=== PATIENT | female | born 1965 | race Caucasian/White ===

== ENCOUNTER 2024-10-20 18:27 | Emergency (ER) | payer OTHER, SELFPAY ==
--- OUTSIDE RECORDS SUMMARY | 2024-10-20 18:34 | XMS_ITS | Clinical Summary ---
Author Organization [facility] Address [address] [place] [address] Care Team Providers Care Bid Analyst Name Role Phone Unavailable Primary Care Provider Unavailabl e Source Comments [facility],non-owned Affiliates and Associated Physician Practices is amultiple site organization consisting of ambulatory clinics and hospital sitesin [place], [place], [place] and [place]. This disclosure is being madepursuant to the Care Everywhere program and may not contain all information available regarding this patient. Last updated 18.[facility] Allergies Active Allergy Reactions Criticality Noted Date Comments Codeine Dizziness 12/05/2021 Medications * Be aware that medications may not be up to date on this document. Alwaysverify current medications with the patient. Medication Sig Dispensed Refills Start Date End Date Status HYDROcodone-acetaminop hen (NORCO) 5-325 MG tablet Take 1 (one) tablet by mouth every 6 hours as needed for Pain 6 tablet 12/05/2021 Active Social History Tobacco Use Types Packs/Day Years Used Date Smoking Tobacco: Former Cigarettes 1 1.5 Smokeless Tobacco: Never Alcohol Use Standard Drinks/Week Comments Yes 0 (1 standard drink = 0.6 oz pur e alcohol) once per month max Sex and Gender Information Value Date Recorded Sex Assigned at Not on file Gender Identity Not on file Sexual Orientation Not on file Last Filed Vital Signs Vital Sign Reading Time Taken Comments Blood Pressure 112/73 12/05/2021 6:00 PM CDT Pulse - - Temperature 36.8 C (98.2 F) 12/05/2021 4:06 PM CDT Respiratory Rate 16 12/05/2021 4:05 PM CDT Oxygen Saturation 100% 12/05/2021 6:00 PM CDT Inhaled Oxygen Concentration - - Weight 86.2 kg (190 lb) 12/05/2021 4:06 PM CDT Height 165.1 cm (5' 5 ) 12/05/2021 4:06 PM CDT Body Mass Index 31.62 12/05/2021 4:06 PM CDT Plan of Treatment Health Maintenance Due Date Last Done Comments COLOGUARD (AGES 45-75) - COL ON CA SCREENING 1967 COLON MONITORING 1967 COLONOSCOPY - COLON CA SCREENING 1967 CT COLONOGRAPHY - COLON CA SCREENING 1967 Colorectal Cancer Screening 1967 FIT - COLON CA SCREENING 1967 FLEX SIG - COLON CA SCREENING 1967 LIPID TESTING 1967 MAMMOGRAM 1967 PAP SMEAR 1967 HIV SCREENING 1982 HEPATITIS C SCREENING 09/25/1985 DTAP/TDAP/TD VACCINES (1 - Tdap) 1986 HEPATITIS B VACCINE (1 of 3 - 19+ 3-dose series) 1986 PNEUMOCOCCAL VACCINE 50+ (1 of 1 - PCV) 2017 ZOSTER VACCINE (1 of 2) 2017 COVID-19 VACCINE (1 - 2023-2 5 season) 2024 INFLUENZA VACCINE (#1) 2024 DEPRESSION SCREENING 08/05/2024 HIB VACCINE Aged Out No longer eligi ble based on patient's age to complete this topic HPV VACCINE Aged Out No longer eligi ble based on patient's age to complete this topic MENINGOCOCCAL (Group B) VACC INE SHARED DECISION-MAKING Aged Out No longer eligibl e based on patient's age to complete this topic MENINGOCOCCAL GROUPS A/C/Y/W VACCINE Aged Out No longer eligible b ased on patient's age to complete this topic PNEUMOCOCCAL VACCINE Aged Out No long er eligible based on patient's age to complete this topic
--- OUTSIDE RECORDS SUMMARY | 2024-10-20 18:34 | XMS_ITS | Data Portability ---
Author Organization [facility] [place] Address [address] [place] [address] Assessment No assessment recorded. Plan of Treatment Reminders Order Date Submit Date Provider Last Modified By Organization Details Last Modified Time Details Appointments None recorded. Lab lipid panel, serum 2022 023 [facility], [address], [place], [address], 3 20:08:50 CMP, serum or plasma 2022 023 [facility], [address], [address], [place], [address], 3 20:08:50 ccp (cyclic citrullin ated peptide) iga+igg, serum 2022 023 [facility], [address], [address], [place], [address], 3 06:15:21 rf (rheumato id factor), serum 2022 023 [facility], [address], [address], [place], [address], 3 06:15:22 Hepatitis C IgG Ab, qual, serum 2022 023 [facility], [address], [address], [place], [address], 3 06:15:20 HbA1c (hemoglob in A1c), blood 2022 023 [facility], [address], [address], [place], [address], 06:15:22 Referral None recorded. Procedures None recorded. Surgeries None recorded. Imaging electroca rdiogram 2022 023 [facility] In-Office Order, Internal Use Only DO Not Attach Compendium DO Not Attach Compendium, Do Not Delete/merge, [id number] 12:55:24 Medication Orders None recorded. Patient TargetsNo targets recorded. Patient Instructions Encounter Date Encounter Id Patient Instructions Last Modified By Organization Details Last Modified Time 01/22/2023 [id number] A healthy lifestyle: care instructions [email or web address] Not available 01/22/2023 12:11:47 Reason for Referral None Reported. Results Created Date Observation Date Name Description Value Unit Range Abnormal Flag Note LastModifiedBy Organization Detail LastModifiedTime 01/23/2001/22/2023 LIPID PANEL cholesterol, total 233.8 mg/dL 140.0- 200.0 above high normal Not Available [facility] Department [address] [place], [address], 01/22/2023 20:08:50 01/23/2001/22/2023 LIPID PANEL triglyceride s 81 mg/dL <=150 Not Available [facility] Department [address] [place], [address], 01/22/2023 20:08:50 01/23/20 23 01/22/2023 LIPID PANEL HDL cholesterol 104.3 mg/dL 40.0-1 00.0 above high normal Not Available [facility] Department [address] [place], [address], 01/22/2023 20:08:50 01/23/20 23 01/22/2023 LIPID PANEL VLDL cholesterol enoc 16.20 mg/dL 5.00-4 0.00 Not Available [facility] Department [address] [place], [address], 01/22/2023 20:08:50 01/23/20 23 01/22/2023 LIPID PANEL LDL chol calc ([facility]) 115.8 mg/dL 0.0-99 .0 above high normal Not Available [facility] Department [address] [place], [address], 01/22/2023 20:08:50 01/23/20 23 01/22/2023 COMP. METAB OLIC PANEL (14) glucose 98 mg/dL 65-99 ANION GP 19.0 mmol/ L N OSMOL 277.0 mOsM/ L N REFER ENCE RANGE : 275.0 -301. 0 Not Available [facility] Department [address] [place], [address], 01/22/2023 20:08:50 01/23/20 23 01/22/2023 COMP. METAB OLIC PANEL (14) BUN 12 mg/dL 8-26 Not Available [facility] Department [address] [place] [address], [address], 01/22/2023 20:08:50 01/23/20 23 01/22/2023 COMP. METAB OLIC PANEL (14) creatinine 0.89 mg/dL 0.50-1 .40 Not Available [facility] Department [address] [place], [address], 01/22/2023 20:08:50 01/23/20 23 01/22/2023 COMP. METAB OLIC PANEL (14) eGFR 77 mL/mi n/1.7 3 >=60 Not Available [facility] Department [address] [place], [address], 01/22/2023 20:08:50 01/23/20 23 01/22/2023 COMP. METAB OLIC PANEL (14) BUN/creatini ne ratio 12.9 Not Available [facility] Department [address] [place], [address], 01/22/2023 20:08:50 01/23/20 23 01/22/2023 COMP. METAB OLIC PANEL (14) sodium 139.0 mmol/ L 136.0- 144.0 Not Available [facility] Department [address] [place], [address], 01/22/2023 20:08:50 01/23/20 23 01/22/2023 COMP. METAB OLIC PANEL (14) potassium 5.4 mmol/ L 3.5-5. 3 above high normal Not Available [facility] Department [address] [place], [address], 01/22/2023 20:08:50 01/23/20 23 01/22/2023 COMP. METAB OLIC PANEL (14) chloride 103 mmol/ l 101-11 1 Not Available [facility] Department [address] [place] [address], [address], 01/22/2023 20:08:50 01/23/20 23 01/22/2023 COMP. METAB OLIC PANEL (14) carbon dioxide, total 23.0 mmol/ L 21.0-3 2.0 Not Available [facility] Department [address] [place] [address], [address], 01/22/2023 20:08:50 01/23/20 23 01/22/2023 COMP. METAB OLIC PANEL (14) calcium 9.5 mg/dL 8.2-10 .0 Not Available [facility] Department [address] [place] [address], [address], 01/22/2023 20:08:50 01/23/20 23 01/22/2023 COMP. METAB OLIC PANEL (14) protein, total 6.9 g/dL 6.7-8. 2 Not Available [facility] Department [address] [place] [address], [address], 01/22/2023 20:08:50 01/23/20 23 01/22/2023 COMP. METAB OLIC PANEL (14) albumin 4.2 g/dL 3.5-5. 5 Not Available [facility] Department [address] [place], [address], 01/22/2023 20:08:50 01/23/20 23 01/22/2023 COMP. METAB OLIC PANEL (14) globulin, total 2.7 g/dL 1.5-4. 5 Not Available [facility] Department [address] [place], [address], 01/22/2023 20:08:50 01/23/20 23 01/22/2023 COMP. METAB OLIC PANEL (14) A/G ratio 1.5 Not Available [facility] Department [address] [place], [address], 01/22/2023 20:08:50 01/23/20 23 01/22/2023 COMP. METAB OLIC PANEL (14) bilirubin, total 0.2 mg/dL 0.0-1. 2 Not Available [facility] Department [address] [place], [address], 01/22/2023 20:08:50 01/23/20 23 01/22/2023 COMP. METAB OLIC PANEL (14) alkaline phosphatase 121.2 IU/L 42.0-1 21.0 above high normal Not Available [facility] Department [address] [place], [address], 01/22/2023 20:08:50 01/23/20 23 01/22/2023 COMP. METAB OLIC PANEL (14) AST (SGOT) 10.5 U/L 10.0-4 2.0 Not Available [facility] Department [address] [place], [address], 01/22/2023 20:08:50 01/23/20 23 01/22/2023 COMP. METAB OLIC PANEL (14) ALT (SGPT) 6.5 U/L 10.0-6 0.0 below low normal Not Available [facility] Department [address] [place], [address], 01/22/2023 20:08:50 01/23/20 23 01/23/2023 HCV ANTIB CARLOS RFX TO QUANT PCR HCV Ab Non Reacti ve nonrea ctive Not Available [facility] ([facility]) [address] [place], [address], 01/26/2023 06:15:20 01/23/20 23 01/25/2023 CCP ANTIB ODIES IGG/I GA ccp antibodies IgG/IgA 6 units 0-19 Negat noelle <20 Weak posit noelle 20 - 39 Moder ate posit noelle 40 - 59 Stron g posit noelle >59 Value s above 250 units are repor liudmila at the reque st of the clien t. Such value s are beyon d the linea rity range of the assay . Not Available [facility] ([facility]) [address] [facility], [place], [address], 01/26/2023 06:15:21 01/23/20 23 01/23/2023 HEMOG LOBIN A1C hemoglobin A1C 5.8 % 4.8-5. 6 above high normal Predi abete s: 5.7 - 6.4 Diabe anival: >6.4 Glyce mary contr ol for adult s with diabe anival: <7.0 Not Available [facility] ([facility]) [address] [place], [address], 01/26/2023 06:15:22 01/23/2001/23/2023 RHEUM ATOID FACTO R (RF) rheumatoid factor (rf) <10.0 IU/mL <14.0 Not Available [facility]) [address] [place], [address], 01/26/2023 06:15:22 01/23/20 23 01/23/2023 INTER PRETA TION: interpretati on: Commen t Not infec liudmila with HCV unles s early or acute infec tion is suspe cted (whic h may be delay ed in an immun ocomp romis ed indiv idual ), or other evide nce exist s to indic ate HCV infec tion. Not Available [facility] ([facility]) [address], [place], [address], 01/26/2023 06:15:20 01/23/20 23 01/22/2023 elect rocar diogr am No observ ation record ed. [facility] In-Office Order Internal Use Only DO Not Attach Compendium DO Not Attach Compendium, Do Not Delete/merge, [id number] 01/22/2023 12:55:36 01/23/20 23 01/22/2023 elect rocar diogr am No observ ation record ed. [facility] In-Office Order Internal Use Only DO Not Attach Compendium DO Not Attach Compendium, Do Not Delete/merge, [id number] 01/22/2023 12:54:55 07/23/20 24 07/22/2024 CT, enter ogram No observ ation record ed. [address], [address], 07/27/2024 08:29:56 Result Notes None recorded. Problems Name Problem SNOMED Code Status Onset Date Resolution Date Notes Provider Name and Address Organization Details Recorded Time Inflammatory bowel disease 45991291 Active 2022 Cristiana Schmidt MD Attn: Accounting ,[address] [place], [address] , [place] - [facility] 3 11:59:23 Irregular heart beat 278391465 Active 2022 Cristiana Schmidt MD Attn: Accounting ,[address] [facility], [place], [address] , [place] - [facility] 3 11:59:36 Multiple joint pain 78326677 Active 2022 Cristiana Schmidt MD Attn: Accounting ,[address] [place], [address] , [place] - [facility] 3 11:59:51 Obesity 839666173 Active 2022 Cristiana Schmidt MD Attn: Accounting ,[address] [facility], [place], [address] , [place] [facility] 3 11:59:55 Chronic depression 355203718 Active 2022 Cristiana Schmidt MD Attn: Accounting ,[address] [facility], [place], [address] , [place] [facility] 3 12:00:02 Gastroesophag eal reflux disease 504636631 Active 2022 Cristiana Schmidt MD Attn: Accounting ,[address] [facility], [place], [address] , [place] [facility] 3 12:00:10 Problem Notes None recorded. Procedures Surgical History Date Name Laterality Status Provider Name and Address Organization Details Recorded Time 08/05/19 10 laparoscopic sleeve gastrectomy completed Danae Burciaga MA [facility] 01/22/2023 10:16:30 06/02/19 96 section completed Danae Burciaga MA [place] [facility] 01/22/2023 10:16:50 08/05/18 76 Removal of tonsils completed Danae Burciaga [place] [facility] 01/22/2023 10:17:12 Total hysterectomy completed Leslie Palacios APN, [employer] Attn: Accounting,[address] [facility], [place], [address], [place] [facility] 02/12/2024 12:16:37 Imaging Results Imaging Date Name Status LastModified by Organization Details LastModified Time 01/22/2023 electrocardiogram completed [facility] In-Offi ce Order Internal Use Only DO Not Attach Compendium DO Not Attach Compendium, Do Not Delete/merge, [id number] 01/22/2023 12:55:36 01/22/2023 electrocardiogram completed [facility]-Off[facility] Order Internal Use Only DO Not Attach Compendium DO Not Attach Compendium, Do Not Delete/merge, [id number] 01/22/2023 12:54:55 07/22/2024 CT, enterogram completed [address] [place], [address], 07/27/2024 08:29:56 Procedure Notes None recorded. Medical Equipment None Reported. Allergies Allergen ID Allergen Name Allergen Category Reaction Reaction Severity Criticality Documentation Date Start Date Code Code System Note Provider Name and Address Organization Details Recorded Time 643856 codeine medicatio n dizziness severe Not available 01/22/2023 2670 RxNorm Not Available Not Available Not Available 907430 erythromy kvng medicatio n vomiting moderate Not available 01/22/2023 4053 RxNorm Not Available Not Available Not Available Medications Name Sig Start Date Stop Date Status Note LastModified by Organization Details LastModified Time venlafaxine ER 75 mg capsule,exten ded release 24 hr TAKE 3 CAPSULES BY MOUTH IN THE MORNING active Not Available Not Available No t Available bupropion HCl XL 300 mg 24 hr tablet, extended release TAKE 1 TABLET BY MOUTH ONCE DAILY active Not Available Not Available No t Available Vitals Date Recorded Respiratory rate Oxygen saturation Oxygen saturation in Arterial blood by Pulse oximetry Body weight Body mass index (BMI) Body height Heart rate Body temperature Systolic blood pressure Diastolic blood pressure Provider Name and Address Organization Details Last Updated DateTime 12 /min 97 % 97 % 79226.0 3 g 35.4 kg/m2 162.56 cm 96 /min 98.1 [degF] 127 mm[Hg] 78 mm[Hg] Danae Burciaga MA [facility] 10:11:30 Social History Question Answer Notes LastModified by Organizat ion Details LastModified Time Tobacco Smoking Status Never Smoker Danae Burciaga MA null, [place] - [facility] 01/22/2023 10:18:07 What Is Your Level Of Alcohol Consumption? Occasional Information not available 01/22/2023 What Is Your Level Of Caffeine Consumption? Heavy Coffee Information not available 01/22/2023 Are There Any Guns Present In Your Home? No Information not available 01/22/2023 What Was The Date Of Your Most Recent Tobacco Screening? 01/22/2023 Information not available 01/22/2023 Do You Have Smoke And Carbon Monoxide Detectors In Your Home? Yes Information not available 01/22/2023 Are You Passively Exposed To Smoke? No Information no t available 01/22/2023 Do You Use Any Illicit Or Recreational Drugs? No Information not available 01/22/2023 Do You Use Sunscreen Routinely? Yes Information not available 01/22/2023 Has Tobacco Cessation Counseling Been Provided? No Information not available 01/22/2023 Do You Or Have You Ever Used Any Other Forms Of Tobacco Or Nicotine? No Information not available 01/22/2023 Sex: Female Functional Status None recorded. Mental Status None recorded. Family History Relationship Description Onset Age of this Age Resolved Age Notes LastModified by Organization Details LastModified Time Mother Hypertensive disorder [email or web address] Not available 01/22 10:14:33 Mother Hypercholest erolemia [facility] Not available 01/22 10:15:08 Father Hypertensive disorder [facility] Not available 01/22 10:14:41 Father Heart disease [facility] Not available 01/22 10:14:51 Father Hypercholest erolemia [facility] Not available 01/22 10:15:08 Medical History Condition Response Coronary Artery Disease N Other N Atrial Fibrillation N High Blood Pressure N Thyroid Problems N Kidney or Bladder Problems N Depression Y COPD N Blood Clots N GI Problems N Skin Problems N Eating Disorder N Anemia N Heart Attack (DC) N Diabetes N Anxiety Disorder N Muscle, Joint, or Bone Problems N Seizures/Epilepsy N Acid Reflux (GERD) N Cancer N Stroke N Allergies N Asthma N ADHD N Substance Abuse N High Cholesterol N Hepatitis N Liver Disease N Schizophrenia N Headaches N Osteoporosis N Heart Failure N Gynecological HistoryNo gynecological history recorded. Obstetrics History GPAL:G 0 P 0 0 0 0 Past Encounters Encounter ID Performer Location Encounter Start Date Encounter Closed Date Diagnosis/Indication Diagnosis SNOMED-CT Code Diagnosis ICD10 Code Diagnosis Note [id number] MD Michael Bill 14 IM 4 [facility] [place] [address] 01/22/2023 09:51:40 02/04/2023 13:17:40 Obesity 821702514 E66.9 Continue on lifestyle measuresCa n discuss more re: diet at next visit, ok to continue exercise Irregular heart beat 361 903789 R00.8 Chest pain 33773694 R07. 9 see irregular heart beat Multiple joint pain 3567 8005 M25.50 Diabetes m ellitus screening 162817214 Z13.1 Hyperlipid emia screening 313332051 Z13.220 Hepatitis C screening 41 7008748 Z11.59 Gastroesop hageal reflux disease 930657972 K21.9 Health Concerns Section Related Observation LastModified by Organization Detai ls LastModified Time None Recorded Concern Status LastModified by Organization Details LastModified Time None Recorded Advance Directives Directive None Recorded Payers Encounter Date Sequence Insurance Name Policy Number Policy Keller Covered Member ID Keller Member ID Guarantor Name 01/22/2023 1 [facility] [id number] Alethea Patel [id number] Alethea Patel Notes Date Note Type Note Provider Name and Address Organization Details Recorded Time 01/22/2023 text/html Here to est care and discuss the following Irregular Heartbeat, Chest painMother has WPW and Alethea has a long hx of feeling skipped beats, sometimes will feel it rarely, most frequently had been 1x/monthNow getting it a few times a week for the last 6 monthsHas also been feeling a very sharp pinpoint sensation in center of chest, just behind sternum, feels deep, occurs 1xweek and also going on about 6 monthsPain will last split second and will sometimes be accompanied by the heart flutterSx can occur in any setting - watching TV, when exercising; nothing seems to bring it on; has exercised with no issueWears heart monitor when exercising, has not been alerted to any issuesDoesn't feel presyncopalHas depression which she reports as well managed but also reports she's been under more stress with recent job expansionA&P: EKG is unremarkable. CMP pending to check electrolytes. If normal will plan for holter. Pain in multiple jointsC/o pain in lots of areas - hands, shoulders, knees, feet, ankles but has really been hurting in handsThey are stiff at times, but pain is more the issue, feels heat, stinging, at times will have red color to jointsL thumb is worst ; handedHas tried ibuprofen but worries because of bad gerd issues and hx of gastric surgeryHasn't tried tylenolHasn't tried any topicalHas OA in both parents; had aunt with rheumatoidHad been tested for RA, neg, but 10 yearsMother had thryoid issues, no other autoimmunePt herself has IBDA&P: Labs pending; if negative consider imaging vs referral to rhuem given her other autoimmune dx. In the meantime try topical voltaren. Fine to keep exercising. ObesityS/p Gastric sleeve and kept much of weight off for years but with covid and menopause gained 80lb; which is about halfSince Feb has lost about 6 lbNo changing diet but has been exercising more regularlyA&P: Not focus of encounter today; reassured her that's a pretty good rate of weight loss, no changes for now Ulcerative colitisFound incidentally on screening cscopeSuffers minimally from pain, constipationMay be more of crohn's, looking into more testingSees GI here on campus, Dr. 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
--- OUTSIDE RECORDS SUMMARY | 2024-10-20 18:35 | XMS_ITS | Clinical Summary ---
Author Organization [facility] Address [address] [place] [address] Care Team Providers Care Aviation Program Manager Name Role Phone Cristiana Schmidt MD Primary Care Provide r Allergies Active Allergy Reactions Criticality Noted Date Comments Codeine Dizziness Low Erythromycin Nausea & Vomiting Low Medications buPROPion XL (WELLBUTRIN XL) 300 mg 24 hr tablet Take 1 tablet (300 mg total) by mouth daily Active venlafaxine XR (EFFEXOR-XR) 75 mg 24 hr capsule Take 1 capsule (75 mg total) by mouth 3 (three) times a day 2 Active docusate sodium (Colace) 100 mg capsuleIndicati ons:constipatio n Take 1 capsule (100 mg total) by mouth 2 (two) times a day for 14 days 28 capsule 5 Active ondansetron (ZOFRAN) 4 mg tablet Take 1 tablet (4 mg total) by mouth every 8 (eight) hours as needed for nausea or vomiting Active ondansetron (ZOFRAN) 4 mg tablet Take 1 tablet (4 mg total) by mouth every 6 (six) hours as needed for nausea or vomiting for up to 14 days 30 tablet 5 10/02/19 25 Additional Information Patient not taking.Reported on 09/24/2024 HYDROcodone-daniel taminophen (NORCO) 5-325 mg per tabletIndicatio ns:Pain Take 1 tablet by mouth every 6 (six) hours as needed for pain for up to 7 days 28 tablet 5 09/25/19 25 Additional Information Patient not taking.Reported on 09/24/2024 Active Problems Problem Noted Date Diagnosed Date Colon stricture 08/06/2024 Assessment & Plan (10/15/2024 10:20 AM CDT): Clinically she states that she is slowly improving she is just frustrated it has been taking this long. I am concerned if she does have the start of the flu that this will just set her back some. We have encouraged fluid intake and if she feels as if she is getting dehydrated we could send her for some IV fluids at the infusion center. Continue to encourage protein supplementation and diet as tolerates. She would like to try and go back to work but believes she may need 1 more week. We will see her back next week to reassess. Assessment & Plan (10/08/2024 9:38 AM [employer]): We have discussed protein supplementation in liquid form until she can tolerate more solid food intake. Because of this she is still quite weakened and fatigued and having a hard time making it through to the end of the day sitting up. Because of this she will hold off on returning to work until we see her and evaluate her again next week. Bowel regimen if needed to avoid straining. Continue to encourage p.o. intake. She will call us sooner before then if anything would change. Assessment & Plan (09/24/2024 2:26 PM [employer]): Continue diet as tolerated. Bowel regimen if needed to avoid straining. [place] have been removed and Steri-Strips placed. We have gone over pathology results with the patient. Continue to avoid heavy lifting. We will see the patient back in 2 weeks. Assessment & Plan (08/06/2024 9:43 AM [employer]): Given the progression of the stricture we will set her up for resection. We have discussed doing this via a minimally invasive approach but she has had a prior open hysterectomy so I have discussed the possibility of needing to do this open. Postoperative complications such as anastomotic leak have been discussed. We have discussed hospital length of stay as well as time needed off of work. We have discussed postoperative lifting restrictions. She will do the same colon preparation as she did with GI in preparation for surgery. All questions answered. She was in understanding of the plan. Encounter for screening colonoscopy 11/06/2023 Acute cystitis without hematuria 03/27/2018 Acquired hypothyroidism 03/25/2018 Assessment & Plan (03/25/2018 9:59 AM CDT): Symptomatic. Has been off of medication for 3 - 4 months, Labs ordered. She would like brand-only Synthroid. Presbyopia 06/09/2012 Encounters Date Type Department Care Team Description 10/15/2024 9:50 AM CDT Office Visit [address], [place] [address] Sarbjit Brothers MD Colon stricture (HCC) (Primary Dx) 10/08/2024 9:15 AM [employer] [employer] Office Visit [address], [place] [address] Sarbjit Brothers MD Colon stricture (HCC) (Primary Dx); Stricture of transverse colon (HCC) 09/25/2024 [facility] Post Discharge Follow up phone call [facility] [address] [place] [address] Della Rock 09/24/2024 11:10 AM [employer] Office Visit [address] [place] [address] Sarbjit Brothers MD Colon stricture (HCC) (Primary Dx) 09/16/2024 11:28 AM [employer] Anesthesia Event [facility] Operating [facility] [address] [place] [address] Huber Gonsalez MD Riddle, Rachel Marie, CRNA 09/16/2024 10:55 AM [employer] [employer] [facility] - 09/16/2024 1:50 PM [employer] [employer] [facility] Surgery [facility] Operating Room [address] [place] [address] Sarbjit Brothers MD XI RIGHT COLECTOMY - LAPAROSCOPIC ROBOTIC ASSISTED 09/16/2024 9:09 AM [employer] [facility] - 09/20/2024 1:50 PM [employer] [employer] Hospital Encounter [facility] [address] [place] [address] Sarbjit Brothers MD Colon stricture (HCC) Discharge Disposition: Discharge to home or self care 08/11/2024 Orders Only [address] [place] [address] Sarbjit Brothers MD Colon stricture (HCC) (Primary Dx) 08/07/2024 Orders Only [address] [place] [address] Sarbjit Brothers MD 08/06/2024 9:20 AM [employer] [employer] Office Visit [address] [place] [address] Sarbjit Brothers MD Colon stricture (HCC) (Primary Dx) 08/06/2024 Orders Only [address] [place] [address] Sarbjit Brothers MD 07/22/2024 10:00 AM [employer] - 07/22/2024 11:59 PM [employer] [employer] Hospital Encounter [facility] [address] [place] [address] Stricture of transverse colon (HCC); Colitis Discharge Disposition: Discharge to home or self care 07/22/2024 Telephone [facility] Medical [facility] Gastroenterology at [address] [place] [address] Demi Andrade LPN from Last 3 Months Immunizations Immunization Administration Dates Next Due Tdap 03/25/2018 Surgical History Surgery Date Site/Laterality Comments BARIATRIC SURGERY 08/05/2008 - 08/04/2009 sleeve HYSTERECTOMY 08/05/2003 - 08/04/2004 SECTION TONSILLECTOMY 08/05/1972 - 08/04/1973 N/A COLECTOMY 09/16/2024 Medical History Medical History Date Comments Depression 1992 Hypothyroidism Anemia Anxiety Arthritis Gastric reflux Inflammatory bowel disease Migraines Obesity Allergic rhinitis Sleep apnea Urinary tract infection Family History Medical History Relation Name Comments Alcohol abuse Father Diabetes Father Hypertension Father Mental illness Father Hypertension Mother Mental illness Mother Relation Name Status Comments Father Mother Alive Social History Tobacco Use Types Packs/Day Years Used Date Smoking Tobacco: Never Smokeless Tobacco: Never Tobacco Cessation:Counseling Given: Not Answered [facility] Utilities Answer Date Recorded In the past 12 months has th e electric, gas, oil, or water company threatened to shut off services in your home? No 09/17/2024 Social Connection and Isolat ion Panel [NHANES] Answer Date Recorded In a typical week, how many times do you talk on the phone with family, friends, or neighbors? More than three times a week 09/17/2024 How often do you get togethe r with friends or relatives? More than three times a week 09/17/2024 How often do you attend chur ch or taoism services? Patient declined 09/17/2024 Do you belong to any clubs o r organizations such as taoist groups, unions, fraternal or athletic groups, or school groups? Patient declined 09/17/2024 How often do you attend meet ings of the clubs or organizations you belong to? Patient declined 09/17/2024 Are you , , di vorced, , never , or living with a partner? 09/17/2024 AUDIT-C Answer Date Recorded Q1: How often do you have a drink containing alc ohol? Monthly or less 09/16/2024 Q2: How many drinks containi ng alcohol do you have on a typical day when you are drinking? 1 or 2 09/16/2024 Frequency of Binge Drinking Not on file 09/05 Overall Financial Resource Strain (CARDIA) Answe r Date Recorded How hard is it for you to pa y for the very basics like food, housing, medical care, and heating? Somewhat hard 09/17/2024 Hunger Vital Sign Answer Date Recorded Within the past 12 months, y ou worried that your food would run out before you got the money to buy more. Never true 09/17/19 25 Within the past 12 months, t he food you bought just didn't last and you didn't have money to get more. Never true 09/17/2024 PRAPARE - Transportation Answer Date Re corded In the past 12 months, has l ack of transportation kept you from medical appointments or from getting medications? No 09/05 In the past 12 months, has l ack of transportation kept you from meetings, work, or from getting things needed for daily living? No 09/17/2024 Housing Stability Vital Sign Answer Ruben e Recorded In the last 12 months, was t here a time when you were not able to pay the mortgage or rent on time? Yes 09/17/2024 In the past 12 months, how m any times have you moved where you were living? 0 09/17/2024 At any time in the past 12 m [facility], were you homeless or living in a fdc (including now)? No 09/17/2024 Personal Safety Answer Date Recorded Have you ever been in or are you currently in a harmful physical or emotional relationship or is someone making you feel afraid or unsafe? Denies 09/16/2024 Comments Unknown Sex and Gender Information Value Date Recorded Sex Assigned at Not on file Legal Sex Female 4:22 AM [employer] Gender Identity Not on file Sexual Orientation Not on file Obstetrics History Last Filed Vital Signs Vital Sign Reading Time Taken Comments Blood Pressure 132/85 10/15/2024 9:41 AM CDT Pulse 122 10/15/2024 9:41 AM CDT Temperature 36.3 C (97.3 F) 10/15/2024 9:41 AM CDT Respiratory Rate 18 09/20/2024 7:00 AM [employer] Oxygen Saturation 95% 10/15/2024 9:41 AM CDT Inhaled Oxygen Concentration - - Weight 87.8 kg (193 lb 8 oz) 10/15/2024 9:41 AM CDT Height 162.6 cm (5' 4 ) 10/15/2024 9:41 AM CDT Body Mass Index 33.21 10/15/2024 9:41 AM CDT Plan of Treatment Health Maintenance Due Date Last Done Comments Breast Cancer Screening-Mammogram 1965 Hepatitis C Screening 1965 Hepatitis B Screening 1985 Zoster Vaccine (1 of 2) 2017 Depression Screening 03/25/2019 03/25/2018 Regular Well Visit/Exam 18-64 03/25/2019 03/25/2018 Covid-19 Vaccine (3 - 2023- season) 2024 08/29/2021, 04/17/2021 Influenza Vaccine (#1) 2024 DTaP/Tdap/Td Vaccine (2 - Td or Tdap) 03/25/2028 03/25/2018 Colon Cancer Screening-Colonoscopy 07/17/2034 07/17/2024, 05/19/2018 Colon Cancer Screening-CT Colonography Discontinued 07/17/2024, 05/19/2018 Colon Cancer Screening-DNA Stool Discontinued 07/17/2024, 05/19/2018 Colon Cancer Screening-FIT Discontinued 07/17, 05/19/2018 Colon Cancer Screening-Sigmoidoscopy Discontinued 07/17/2024, 05/19/2018 Pneumococcal vaccine <65 Aged Out No longer eligible based on patient's age to complete this topic Procedures Procedure Name Priority Date/Time Associated Diagnosis Comments EGFR Routine 09/17/2024 2:51 AM [employer] [employer] [facility] CBC WITHOUT DIFFERENTIAL Routine 09/17/2024 2:51 AM [employer] [employer] [facility] PHOSPHORUS Routine 09/17/2024 2:51 AM [employer] [employer] [facility] MAGNESIUM Routine 09/17/2024 2:51 AM [employer] BASIC METABOLIC PANEL Routine 09/17/2024 2:51 AM [employer] [facility] VA AN ELECTIVE ENDOTRACHEAL AIRWAY Routine 09/16/2024 12:01 PM [employer] XI RIGHT COLECTOMY - LAPAROSCOPIC ROBOTIC ASSISTED 09/16/2024 10:58 AM [employer] Colon stricture (HCC) SURGICAL PATHOLOGY Routine 09/16/2024 9: 41 AM [employer] Colon stricture (HCC) B ABO / RH CONFIRMATION TESTING STAT 09/16/2024 9:32 AM [employer] EGFR STAT 09/16/2024 9:29 AM [employer] DIFFERENTIAL AUTO STAT 09/16/2024 9:2 9 AM [employer] ANTIBODY SCREEN STAT 09/16/2024 9:29 AM [employer] [facility] ABO/RH STAT 09/16/2024 9:29 AM [employer] TYPE AND SCREEN STAT 09/16/2024 9:29 AM [employer] CBC WITH AUTO DIFFERENTIAL STAT 09/16/2024 9:29 AM [employer] BASIC METABOLIC PANEL STAT 09/16/2024 9:[address] [employer] [address] ENTEROGRAPHY W CONTRAST Schedule NEO, Read Routine (Patient lives out of area) 07/22/2024 12:09 PM [employer] Stricture of transverse colon (HCC) Colitis COLONOSCOPY 07/17/2024 8:41 AM [employer] from Last 3 Months or Most Recently Relevant to Health Maintenance Results * eGFR (09/17/2024 2:51 AM [employer]) eGFR 82 >=60 mL/min/1. 73 m2 Comment: Interpretive Data Reference Interval Normal >/= 90 mL/min/1.73m2 Mildly decreased* 60 - 89 mL/min/1.73m2 Mildly to moderately decreased 45 - 59 mL/min/1.73m2 Moderately to severely decreased 30 - 44 mL/min/1.73m2 Severely decreased 15 - 29 mL/min/1.73m2 Kidney Failure < 15 mL/min/1.73m2 *Relative to young adult level Estimated glomerular filtration rate is determined by the 2020 CKD-EPI equation recommended by the National Kidney Foundation (A Unifying Approach to GFR Estimation: Recommendations of the NKF-ASK Task Force on Reassessing the Inclusion of Race in Diagnosing Kidney Disease, JASN 2020). The CKD-EPI equation should not be used for patients with unstable renal function and has not been validated in children and those over 70. Current interpretive data was last reviewed 2021. Blood 09/17/2024 2:51 AM [employer] 09/17/2024 3:40 AM [employer] us Sarbjit Brothers MD LAB BLOOD ORDERA BLES Final Result [facility]) 1 [facility] Department [place] [address] * (ABNORMAL) CBC without differential (09/17/2024 2:51 AM [employer]) WBC 14.9(H) 3.8 - 9.9 K/cumm Hgb 10.7(L) 11.9 - 15.5 g/dL [facility] ([facility]) Hct 34.5(L) 35.6 - 45.5 % [facility] Plt 271 150 - 400 K/cumm [facility]) MPV 10.4 9.1 - 12.3 fL [facility]) RBC 3.92 3.90 - 5.20 M/cumm [facility] ([facility]) MCV 88.0 81.3 - 96.4 fL [facility]) MCH 27.3 27.1 - 33.3 pg [facility] ([facility]) MCHC 31.0(L) 32.3 - 35.7 g/dL [facility]) RDW CV 14.2 11.1 - 14.9 % [facility] RDW SD 45.3 35.7 - 48.1 fL [facility]) NRBC abs 0.00 0.00 - 0.01 K/cumm [facility] ([facility]) Blood 09/17/2024 2:51 AM [employer] [employer] [facility] 09/17/2024 3:39 AM [employer] Sarbjit Brothers MD LAB BLOOD ORDERA BLES Final Result Performing Organization Address City[facility] Co de Phone Number [facility] ([facility]) 1 [facility] [place] [address] * Phosphorus (09/17/2024 2:51 AM [employer]) Phosphorus, pl 3.5 2.3 - 4.5 mg/dL Blood 09/17/2024 2:51 AM [employer] 09/17/2024 3:40 AM [employer] Sarbjit Brothers MD LAB BLOOD ORDERA BLES Final Result [facility] ([facility]) 1 [facility] [place] [address] * Magnesium (09/17/2024 2:51 AM [employer] [employer] [facility]) Magnesium 1.8 1.4 - 2.5 mg/dL Blood 09/17/2024 2:51 AM [employer] 09/17/2024 3:40 AM [employer] us Sarbjit Brtohers MD LAB BLOOD ORDERA BLES Final Result [facility] 1 [facility] Department [place] [address] * (ABNORMAL) Basic metabolic panel (09/17/2024 2:51 AM [employer]) Sodium 137 135 - 145 mmol/L Potassium, pl 4.4 3.3 - 4.9 mmol/L [facility]) Chloride 105 97 - 110 mmol/L [facility]) CO2 21(L) 22 - 32 mmol/L [facility]) Anion gap 11 2 - 15 mmol/L [facility]) BUN 10 6 - 25 mg/dL [facility]) Creatinine 0.84 0.60 - 1.10 mg/dL [facility]) Glucose 133 70 - 199 mg/dL [facility]) Comment: Interpretive Data Fasting glucose >/= 126 mg/dl is diagnostic for diabetes. Fasting is defined as no caloric intake for at least 8 hours. Fasting glucose between 100 mg/dl to 125 mg/dl is diagnostic of prediabetes. In a patient with classic symptoms of hyperglycemia or hyperglycemic crisis, a random glucose >/= 200 mg/dl is diagnostic for diabetes. In the absence of unequivocal hyperglycemia, results should be confirmed by repeat testing. The classification and Diagnosis of Diabetes Diabetes Care 2021; 46: S19-S40. Current interpretive data was last revised 2022. Calcium 8.9 8.5 - 10.3 mg/dL [facility]) Blood 09/17/2024 2:51 AM [employer] [facility] 09/17/2024 3:40 AM [employer] us Sarbjit Brothers MD LAB BLOOD ORDERA BLES Final Result [facility] ([facility]) [address] [place] [address] Department [place] [address] * VA AN ELECTIVE ENDOTRACHEAL AIRWAY (09/16/2024 12:01 PM [employer]) Narrative Shannan Ballesteros CRNA - 09/16/2024 12:01 PM [employer] Shannan Ballesteros CRNA 09/16/2024 12:05 PM Airway Patient location: OR Urgency: elective Indications for airway management: anesthesia and airway protection Difficult airway: no Staff: Placed by: CHIEF WHEELAGE CLERK: Shannan Ballesteros CRNA Emergent airway documentation: Risks and benefits discussed: yes Consent obtained: yes Consent given by: patient Airway prep: Preoxygenated: yes Patient position: sniffing Mask difficulty assessment: 2 - vent by mask + OA or adjuvant Sedation level during airway: GA Final airway details: Final airway type: endotracheal airway Tube type: ETT ETT size: 7.0 mm Cuffed: yes Technique used for successful ETT placement: video laryngoscopy Devices/Methods used in placement: intubating stylet and cricoid pressure Insertion site: oral Video blade type: Avery Blade size: 3 Cuff volume: 8 mL Cuff inflated with: air ETT to lips: 19 cm Placement verified by: auscultation Airway secured with: silk tape Number of attempts: 1 Additional comments: Atraumatic intubation. Limited mouth opening and anterior larynx, requiring cricoid pressure for optimal visualization with Avery. us Huber Gonsalez MD ANESTHESIA ORDERABLES Final Result * Surgical pathology (09/16/2024 9:41 AM [employer]) Tissue (Colon, Resection, Non-tumor) 09/16/2024 4:25 PM [employer] Narrative [facility] ([facility]) - 09/21/2024 11:00 AM [employer] EPIC results best viewed via link to PDF [facility] Department of Pathology [address] [place] [id number] Note to Patients: This report may contain a detailed description of human tissue sent by a health care provider to the laboratory for pathologic evaluation. The content of this report is essential for diagnosis and may provide important critical findings. This information may be unfamiliar to patients to review without a medical professional present. It is advised that the patient review this report in the presence of a health care provider who can answer questions and explain the details. Final Report Patient Name: ALETHEA HERNANDEZ Address: [address] [place] [id number] Gender: F : 1965 (Age: 58) Service: Surgery Location: [facility] Hospital #: [id number] Patient Type: [facility] Taken: 09/16/2024 Received: 09/17/2024 Accessioned: 09/17/2024 Reported: 09/21/2024 Physician(s):Sarbjit Brothers MD Diagnosis: Right and transverse colon, robot assisted right and transverse colectomy: - Benign colonic mucosa with areas of ulceration and adjacent acute colitis with underlying submucosal fibrosis, hemorrhage, mixed inflammation, and inflamed granulation tissue. - Negative for malignancy. - Clinically transverse colon stricture. - See diagnosis comment. Diagnosis Comment: Overall, the findings are fairly nonspecific and an exact cause of the patient's stricture can not definitively be determined. Significant hemorrhagic serosal adhesions are not evident. Significant diverticulosis or diverticulitis is not seen. Some of the areas of ulceration do show deeper fissure formation with inflammation extending down into the submucosa with submucosal fibrosis and even some chronic inflammation seen within the muscularis propria. This in conjunction with the acute colitis with mild crypt disarray and crypt abscesses raises the possibility of an inflammatory bowel disease such as Crohn's. However, the findings are not definitive and require clinical correlation. Dipak Armas M.D. Report Electronically Reviewed and Signed Out By Dipak Armas M.D. 09/21/2024 11:00:52 Specimen(s) Received: A: Right colon, transverse colon Microscopic Description: Sections from the margins show no significant inflammation or evidence of neoplasia. Sections from the cecum show benign colonic wall without a significant inflammatory infiltrate. Sections from the appendix show benign appendiceal wall with luminal fibrous obliteration. Sections from the areas of ulceration show ulcerated colonic mucosa with underlying inflamed granulation tissue and submucosal hemorrhage. There is also an adjacent mild active colitis present with mild crypt disarray. Occasional crypt abscesses are also seen in the superficial epithelium. No significant diverticulosis or diverticulitis is seen. Clinical History: Colon stricture. XI right colectomy - laparoscopic robotic assisted. Gross Description: The specimen is submitted in a single formalin filled container labeled ALEHTEA HERNANDEZ and right colon, transverse colon . It is a previously opened right colectomy including a short segment of small bowel, attached cecum, ileocecal bowel, appendix and colon. The small bowel is 1.7 x 2.0 cm. The attached appendix is 5.7 x 0.6 cm. The ileocecal valve and colon have a combined length of 37.6 cm with a diameter that varies from 1.4 up to 2.8 cm. Serosal tattooing is seen at the distal margin. The cecum is markedly dilated. The specimen is opened to show prominent folds in the cecum adjacent to flattened dilated cecum. In the colon, there are 3 areas of stricture. The first is noted in the central colon, 10 cm from the distal margin. There are 2 endoscopy clips noted adjacent to this area. The area of ulceration is 1 x 0.7 cm. The second stricture is is noted 12 cm from the distal margin. The mucosa in this area has an adjacent area of ulceration, 1.5 x 1.0 cm. The third area of stricture is remarkable for tattooing and has an adjacent area of ulceration, 2.5 x 1.8 cm. It is located 2 cm from the distal margin. The bowel wall is markedly thickened. The proximal margin is unremarkable. The appendix is fibrotic with a pinpoint lumen. Sections A1-proximal and distal margins; R2-T3-[id number] cecum; A4 appliance service representative appendix; [id number] area of stricture adjacent to endoscopy clips; A 7-second described area of ulceration/stricture; A8 third described area of ulceration/stricture with tattoo. Federico Phillip/Annamaria Cruz M.D. REPORT IMAGES AND SCANNED DOCUMENTS, IF INCLUDED, ONLY VIEWABLE IN PDF VERSION OF REPORT The performance characteristics of some immunohistochemical stains, fluorescence in-situ hybridization tests and immunophenotyping by flow cytometry cited in this report (if any) were determined by the Surgical Pathology Department at [facility] as part of an ongoing manager quality improvement program and in compliance with federally mandated regulations drawn from the Clinical Laboratory Improvement Act of 1988 (CLIA '88). Some of these tests rely on the use of analyte specific reagents and are subject to specific labeling requirements by the US Food and Drug Administration. Such diagnostic tests may only be performed in a facility that is certified by the Department of Health and Human Services as a high complexity laboratory under CLIA '88. The FDA has determined that such clearance or approval is not necessary. This test is used for clinical purposes. It should not be regarded as investigational or for research. Nevertheless, federal rules concerning the medical use of analyte specific reagents require that the following disclaimer be attached to the report: This test was developed and its performance characteristics determined by the Surgical Pathology Department [facility]. It has not been cleared or approved by the U. S. Food and Drug Administration. Note for decalcified specimens: This assay has not been validated on decalcified tissues. Results should be interpreted with caution given the possibility of false negativity on decalcified specimens Sarbjit Brothers MD LAB PATHOLOGY OR DERABLES Final Result Performing Organization Address [facility] Co de Phone Number PATHOLOGY [facility] ([place]IS) 1 [place] [address] * ABO / Rh Confirmation Testing (09/16/2024 9:32 AM [facility]) ABO/Rh Confirmation A Positive [facility] Blood 09/16/2024 9:32 AM [facility] 09/16/2024 10:50 AM [facility] Sarbjit Brothers MD LAB BLOOD ORDERA BLES Final Result Performing Organization Address [facility] Co de Phone Number [facility] ([place]) 1 [facility] Department [place] [address] [facility] * eGFR (09/16/2024 9:29 AM [facility]) eGFR 69 >=60 mL/min/1. 73 m2 Comment: Interpretive Data Reference Interval Normal >/= 90 mL/min/1.73m2 Mildly decreased* 60 - 89 mL/min/1.73m2 Mildly to moderately decreased 45 - 59 mL/min/1.73m2 Moderately to severely decreased 30 - 44 mL/min/1.73m2 Severely decreased 15 - 29 mL/min/1.73m2 Kidney Failure < 15 mL/min/1.73m2 *Relative to young adult level Estimated glomerular filtration rate is determined by the 2020 CKD-EPI equation recommended by the National Kidney Foundation (A Unifying Approach to GFR Estimation: Recommendations of the NKF-ASK Task Force on Reassessing the Inclusion of Race in Diagnosing Kidney Disease, JASN 2020). The CKD-EPI equation should not be used for patients with unstable renal function and has not been validated in children and those over 70. Current interpretive data was last reviewed 2021. Blood 09/16/2024 9:29 AM [facility] 09/16/2024 9:40 AM [facility] us Sarbjit Brothers MD LAB BLOOD ORDERA BLES Final Result [facility] ([place]) 1 [facility] Department [place] [address] * Differential, auto (09/16/2024 9:29 AM [facility]) Neutrophil abs 3.5 1.5 - 6.5 K/cumm Imm gran abs 0.0 0.0 - 0.1 K/cumm [facility] ([place]) Lymphocyte abs 1.7 0.8 - 3.3 K/cumm [facility] ([place]) Monocyte abs 0.5 0.2 - 0.8 K/cumm [facility] ([place]) Eosinophil abs 0.2 0.0 - 0.5 K/cumm [facility] ([place]) Basophil abs 0.1 0.0 - 0.1 K/cumm [facility] ([place]) Neutrophil pct 58.9 % [facility] R [facility] ([place]) Comment: Interpretive Data Percent cell count reference ranges are not reported, since discordance with absolute values may lead to misinterpretation of CBC data. Current Interpretive Data was last revised on 2017. Imm gran pct 0.2 % [facility] ([place]) Comment: Interpretive Data Percent cell count reference ranges are not reported, since discordance with absolute values may lead to misinterpretation of CBC data. Current Interpretive Data was last revised on 2017. Lymphocyte pct 28.3 % [facility] R [facility] ([place]) Comment: Interpretive Data Percent cell count reference ranges are not reported, since discordance with absolute values may lead to misinterpretation of CBC data. Current Interpretive Data was last revised on 2017. Monocyte pct 8.7 % [facility] ([place]) Comment: Interpretive Data Percent cell count reference ranges are not reported, since discordance with absolute values may lead to misinterpretation of CBC data. Current Interpretive Data was last revised on 2017. Eosinophil pct 2.7 % [facility] ([place]) Comment: Interpretive Data Percent cell count reference ranges are not reported, since discordance with absolute values may lead to misinterpretation of CBC data. Current Interpretive Data was last revised on 2017. Basophil pct 1.2 % [facility] ([place]) Comment: Interpretive Data Percent cell count reference ranges are not reported, since discordance with absolute values may lead to misinterpretation of CBC data. Current Interpretive Data was last revised on 2017. Blood 09/16/2024 9:29 AM [facility] 09/16/2024 9:40 AM [facility] us Sarbjit Brothers MD LAB BLOOD ORDERA BLES Final Result [facility] ([place]) 1 [facility] Department [place] [address] * (ABNORMAL) CBC with auto differential (09/16/2024 9:29 AM [facility]) WBC 5.9 3.8 - 9.9 K/cumm Hgb 11.7(L) 11.9 - 15.5 g/dL [facility] ([place]) Hct 36.3 35.6 - 45.5 % [facility] ([place]) Plt 350 150 - 400 K/cumm [facility] ([place]) MPV 9.8 9.1 - 12.3 fL [facility] ([place]) RBC 4.26 3.90 - 5.20 M/cumm [facility] ([place]) MCV 85.2 81.3 - 96.4 fL [facility] ([place]) MCH 27.5 27.1 - 33.3 pg [facility] ([place]) MCHC 32.2(L) 32.3 - 35.7 g/dL [facility] ([place]) RDW CV 14.2 11.1 - 14.9 % [facility] ([place]) RDW SD 43.8 35.7 - 48.1 fL [facility] ([place]) NRBC abs 0.00 0.00 - 0.01 K/cumm [facility] ([place]) Blood 09/16/2024 9:29 AM [facility] 09/16/2024 9:40 AM [facility] Sarbjit Brothers MD LAB BLOOD ORDERA BLES Final Result Performing Organization Address City/[facility]/ZIP Co de Phone Number [facility]Y [facility] (FRANC[place]) 1 [facility] [place] [address] * ABO/Rh (09/16/2024 9:29 AM [facility]) ABO/Rh A Positive Blood 09/16/2024 9:29 AM [facility] 09/16/2024 9:40 AM [facility] Narrative [facility] ([place]) - 09/16/2024 10:39 AM [facility] Has the patient had Daratumumab or Isatuximab in the past 6 months?->Unknown Sarbjit Brothers MD LAB BLOOD BANK T EST ORDERABLES Final Result Performing Organization Address City/[facility]/ZIP Co de Phone Number [facility] (FRANCIS) 1 [facility] [place] [address] * Antibody screen (09/16/2024 9:29 AM [facility]) Violeta, indirect, Gel Interpretation Negative ABSC Blood 09/16/2024 9:29 AM [facility] 09/16/2024 9:40 AM [facility] Narrative [facility] ([place]) - 09/16/2024 10:39 AM [facility] Has the patient had Daratumumab or Isatuximab in the past 6 months?->Unknown Sarbjit Brothers MD LAB BLOOD BANK T EST ORDERABLES Final Result [facility] ([place]) 1 [facility] [place] [address] * (ABNORMAL) Basic metabolic panel (09/16/2024 9:29 AM [facility]) Sodium 139 135 - 145 mmol/L Potassium, pl 4.1 3.3 - 4.9 mmol/L [facility] ([place]) Chloride 108 97 - 110 mmol/L [facility] ([place]) CO2 19(L) 22 - 32 mmol/L [facility] ([place]) Anion gap 12 2 - 15 mmol/L [facility] ([place]) BUN 8 6 - 25 mg/dL [facility] ([place]) Creatinine 0.96 0.60 - 1.10 mg/dL [facility] ([place]) Glucose 91 70 - 199 mg/dL [facility] ([place]) Comment: Interpretive Data Fasting glucose >/= 126 mg/dl is diagnostic for diabetes. Fasting is defined as no caloric intake for at least 8 hours. Fasting glucose between 100 mg/dl to 125 mg/dl is diagnostic of prediabetes. In a patient with classic symptoms of hyperglycemia or hyperglycemic crisis, a random glucose >/= 200 mg/dl is diagnostic for diabetes. In the absence of unequivocal hyperglycemia, results should be confirmed by repeat testing. The classification and Diagnosis of Diabetes Diabetes Care 2021; 46: S19-S40. Current interpretive data was last revised 2022. Calcium 9.2 8.5 - 10.3 mg/dL [facility] ([place]) Blood 09/16/2024 9:29 AM [facility] 09/16/2024 9:40 AM [facility] Sarbjit Brothers MD LAB BLOOD ORDERA BLES Final Result [facility] ([place]) 1 [facility] Department [place] [address] * CT Abdomen and Pelvis Enterography W Contrast (07/22/2024 12:09 PM [facility]) Anatomical Region Laterality Modality Abdomen N/A Computed Tomogra phy 07/23/2024 6:10 AM [facility] Narrative 07/23/2024 6:27 AM [facility] EXAM DESCRIPTION: CT ENTEROGRAPHY W CONTRAST REASON FOR STUDY: Stricture transverse colon and colitis Pt had routine colonoscopy several strictures were found unknown cause, and colitis. Hx of gastric bypass. TECHNIQUE: CT scan of the abdomen and pelvis performed with intravenous and neutral oral contrast using helical scanning technique with dynamic intravenous contrast injection. Reconstructed coronal and sagittal MPR images reviewed. All images stored on PACS. Automated exposure control was used as a dose optimization technique for this examination. CONTRAST TYPE/DOSE: 100mL of IOVERSOL 350 MG IODINE/ML INTRAVENOUS SYRINGE injected via intravenous COMPARISON: 05/23/2018 CT FINDINGS: GI: Distension of the small bowel is satisfactory . Segments of transverse colon narrowing redemonstrated centered image 98 of series 5 generally similar to prior exam of 05/23/2018. This extends over a length of 11 cm, similar to previous. Just proximal to this, proximal transverse colon has a normal caliber and then another segment of narrowing is identified at the hepatic flexure and again appears grossly unchanged from prior exam extending over length of 3.0 cm on image 89. A surgical clip in this region is unchanged. No hyperenhancing or hypoenhancing segments. Appendix is normal. . No evidence of contrast extravasation into the bowel lumen. No significant diverticular disease. Strictures: No additional strictures. Fistulas: No fistulas. Abscesses: No abscess. PERITONEUM: No ascites or free air. RETROPERITONEUM: No mass or adenopathy. ABDOMEN/PELVIS: LOWER CHEST: Subtle interstitial densities within the lingula may represent atelectasis or subtle pneumonitis. No dense consolidations or effusions. Large hiatal hernia redemonstrated unchanged. LIVER: Normal size. Right lobe demonstrates subcentimeter hypodensity similar to previous likely related to small cyst or hemangioma GALLBLADDER: Normally distended. Subtle densities along the neck regions suggest small stones. No surrounding induration. BILE DUCTS: No intrahepatic or extrahepatic ductal dilatation. SPLEEN: Normal size. No focal lesions. PANCREAS: No identified cystic or solid masses. No significant calcifications. No adjacent inflammation or peripancreatic fluid collections. Pancreatic duct not dilated. ADRENALS: Normal. KIDNEYS/URINARY TRACT: No identified significant cystic or solid masses. No visualized stones. No hydronephrosis or hydroureter. Symmetric enhancement. Urinary bladder is unremarkable. REPRODUCTIVE: No significant abnormality. VASCULATURE: No abdominal aortic aneurysm. MUSCULOSKELETAL: No acute finding. OTHER: No other abnormality. IMPRESSION: Redemonstration of 2 regions of narrowing of the transverse colon similar to prior exam of 05/23/2018. Large hiatal hernia unchanged. Probable small cyst or hemangioma right lobe of liver unchanged. Subtle interstitial densities within the lingula may represent atelectasis or subtle pneumonitis. THIS IS AN ELECTRONICALLY VERIFIED FINAL REPORT 07/23/2024 6:27 AM - Electronically signed by Anthony Howell M.D. RB: YASSINE Report ID: [id number] Reading Location: [place] [address] Procedure Note Anthony Howell MD - 07/23/2024 EXAM DESCRIPTION: CT ENTEROGRAPHY W CONTRAST REASON FOR STUDY: Stricture transverse colon and colitis Pt had routine colonoscopy several strictures were found unknown cause,and colitis. Hx of gastric bypass. TECHNIQUE: CT scan of the abdomen and pelvis performed with intravenousand neutral oral contrast using helical scanning technique with dynamic intravenous contrast injection. Reconstructed coronal and sagittal MPRimages reviewed. All images stored on PACS. Automated exposure control was usedas a dose optimization technique for this examination. CONTRAST TYPE/DOSE: 100mL of IOVERSOL 350 MG IODINE/ML INTRAVENOUSSYRINGE injected via intravenous COMPARISON: 05/23/2018 CT FINDINGS: GI: Distension of the small bowel is satisfactory . Segments of transverse colon narrowing redemonstrated centered image 98 of series 5 generally similar to prior exam of 05/23/2018. This extends overa length of 11 cm, similar to previous. Just proximal to this, proximal transverse colon has a normal caliber andthen another segment of narrowing is identified at the hepatic flexure andagain appears grossly unchanged from prior exam extending over length of 3.0 cmon image 89. A surgical clip in this region is unchanged. No hyperenhancing or hypoenhancing segments. Appendix is normal. .No evidence of contrast extravasation into the bowel lumen. No significant diverticular disease. Strictures: No additional strictures. Fistulas: No fistulas. Abscesses: No abscess. PERITONEUM: No ascites or free air. RETROPERITONEUM: No mass or adenopathy. ABDOMEN/PELVIS: LOWER CHEST: Subtle interstitial densities within the lingula mayrepresent atelectasis or subtle pneumonitis. No dense consolidations oreffusions. Large hiatal hernia redemonstrated unchanged. LIVER: Normal size. Right lobe demonstrates subcentimeter hypodensity similar to previous likely related to small cyst or hemangioma GALLBLADDER: Normally distended. Subtle densities along the neck regions suggest small stones. No surrounding induration. BILE DUCTS: No intrahepatic or extrahepatic ductal dilatation. SPLEEN: Normal size. No focal lesions. PANCREAS: No identified cystic or solid masses. No significant calcifications. No adjacent inflammation or peripancreatic fluidcollections. Pancreatic duct not dilated. ADRENALS: Normal. KIDNEYS/URINARY TRACT: No identified significant cystic or solid masses.No visualized stones. No hydronephrosis or hydroureter. Symmetricenhancement. Urinary bladder is unremarkable. REPRODUCTIVE: No significant abnormality. VASCULATURE: No abdominal aortic aneurysm. MUSCULOSKELETAL: No acute finding. OTHER: No other abnormality. IMPRESSION: Redemonstration of 2 regions of narrowing of the transverse colon similarto prior exam of 05/23/2018. Large hiatal hernia unchanged. Probable small cyst or hemangioma right lobe of liver unchanged. Subtle interstitial densities within the lingula may representatelectasis or subtle pneumonitis. THIS IS AN ELECTRONICALLY VERIFIED FINAL REPORT 07/23/2024 6:27 AM - Electronically signed by Anthony Howell M.D. RB: YASSINE Report ID: [id number] Reading Location: [id number] us Jose L Bosch MD [facility] [place] [facility] PROCEDURES Final Re sult * Colonoscopy (07/17/2024 8:41 AM [facility]) Anatomical Region Laterality Modality Other Narrative Procedure Note Jose L Bosch MD - 07/17/2024 8:41 AM CST [facility] Patient Name: Alethea Hernandez Procedure Date: 07/17/2024 8:41 AM Date of : 1965 Admit Type: Outpatient Age: 58 Gender: Female Attending MD: Jose L Bosch M.D. Room: [facility] ENDOSCOPY ROOM 1 Note Status: Finalized Patient Profile: This is a 58 year old female. Previous colonoscopyin 2019 noted with stricture of the transverse colon.CT was normal and biopsy was the noted withinflammatory ulceration. No specific diagnosis. This time shehas complaints of intermittent pain in the right lower quadrant and irregular bowel movements between constipation and diarrhea. No family history ofcolon cancer. Procedure: Colonoscopy Indications: Last colonoscopy: May 2018, Abdominal pain inthe right lower quadrant, Change in bowel habits, Constipation, Clinically significant diarrhea of unexplained origin Referring MD: Cristiana Schmidt M.D. Providers: Jose L Bosch M.D. Impression: - Stricture in the proximal transverse colon. Biopsied. Clips (MR conditional) were placed for marked. - 3 scattered localized areas moderate inflammation was found in the transverse colon secondary to colitis. Biopsied. - Left side of the colon appeared normal. - Internal hemorrhoids. Recommendation: - Await pathology results. - Schedule CT enterography. - Follow up in the GI office. Please call for appointment. - Check labs including ESR and C-reactive protein - Patient will likely benefit from surgery for extended right hemicolectomy at this point. Willrefer to surgery for 2nd opinion. - Repeat colonoscopy in 1 year for surveillance. Medicines: Monitored Anesthesia Care Complications: No immediate complications. Estimated Blood Loss: Estimated blood loss: none. Procedure: Pre-Anesthesia Assessment: - Prior to the procedure, a History and Physicalwas performed, and patient medications and allergieswere reviewed. The patient's tolerance of previous anesthesia was also reviewed. The risks andbenefits of the procedure and the sedation options and risks were discussed with the patient. All questions were answered, and informed consent was obtained. Prior Anticoagulants: The patient has taken noanticoagulant or antiplatelet agents. ASA Grade Assessment: Per anesthesia note and evaluation. After reviewing the risks and benefits, the patient was deemed in satisfactory condition to undergo the procedure. The benefits, risks and alternatives of theprocedure and sedation were discussed and informed consentwas obtained. All questions were answered. Please referto the signed informed consent document in the medical record. The bowel preparation used was Miralax via split dose instruction. The bowel preparation usedwas bisacodyl tablets via split dose instruction. The scope was passed under direct vision. The Pediatric Colonoscope [id number] was introduced through the anus and advanced to the the transverse colon to examine a stenosis. This was the intended extent. The quality of the bowel preparation wasgood. Bowel prep was administered using a split dose. Findings: The perianal and digital rectal examinations were normal. A benign-appearing, intrinsic severe stricture was found in theproximal transverse colon and was non-traversed. Mucosal ulceration noted atthe stricture opening. Biopsies were taken with a cold forceps for histology. For location marking, two hemostatic clips weresuccessfully placed (MR conditional). 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 Therewas no bleeding at the end of the procedure. There was 3 other smaller areas of scattered inflammation notedwithin the transverse colon with mild stricture formation. Seems about thesame as 2018. Noted with moderate inflammation characterized by congestion (edema), erythema and shallow ulcerations was found in the transverse colon. Biopsies were taken with a cold forceps for histology.Submucosal spot ink marking was injected submucosally just distal to the most distal part of most distal inflammatory area. The rectum, sigmoid colon and descending colon appeared normal. Internal hemorrhoids were found during retroflexion. The hemorrhoids were small. Electronically signed by Jose L Bosch M.D. Jose L Bosch M.D. 07/17/2024 11:12:33 AM Number of Addenda: 0 Note Initiated On: 07/17/2024 8:41 AM Procedure Code(s): --- Professional --- 78295, 52, Colonoscopy, flexible; with biopsy, single or multiple 81722, Unlisted procedure, colon Diagnosis Code(s): --- Professional --- K56.699, Other intestinal obstruction unspecified as to partialversus complete obstruction K52.9, Noninfective gastroenteritis and colitis, unspecified K64.8, Other hemorrhoids R10.31, Right lower quadrant pain R19.4, Change in bowel habit K59.00, Constipation, unspecified R19.7, Diarrhea, unspecified CPT copyright 2020 [employer]. All rights reserved. The codes documented in this report are preliminary and upon stitching machine operator reviewmay be revised to meet current compliance requirements. Recognized by the [employer] for promoting quality in endoscopy Jose L Bosch MD ENDOSCOPY PROCEDURES Final Result from Last 3 Months or Most Recently Relevant to Health Maintenance Insurance [facility] [employer] CON[employer]IATE CIGNA CONSOCIATE * Guarantor: [employer] Account Type Relation to Patient Date of Phone Billing Address Workers Comp Employ[employer] , [address] [place] [address] Advance Directives For more information, please contact: [phone] * Full Code (Latest Code Status on File) Date Activated Date Inactivated Comments 09/16/2024 6:57 PM 09/20/2024 6:57 PM * Full Code Date Activated Date Inactivated Comments 05/19/2018 7:16 AM 05/19/2018 11:39 AM Care Teams Aviation Program Manager Relationship Specialty Start Date End Date Cristiana Schmidt MD [address] [place] [address] PCP - General Family Practice 04/19/23
--- OUTSIDE RECORDS SUMMARY | 2024-10-20 18:35 | XMS_ITS | Referral Summary ---
Author Organization [facility] Building B Address [address] [place] [address] Care Team Providers Care Hr Administrator Name Role Phone Cristiana Schmidt MD Primary Care Provide r Encounters Date Type Department Care Team Description 10/15/2024 9:50 AM CDT Office Visit [address] [place] [address] Sarbjit Brothers MD Colon stricture (HCC) (Primary Dx) 10/08/2024 9:15 AM PROGRESS DEVELOPER Office Visit [address] [place] [address] Sarbjit Brothers MD Colon stricture (HCC) (Primary Dx); Stricture of transverse colon (HCC) 09/25/2024 [facility] Post Discharge Follow up phone call [address] [address] [place] 09/24/2024 11:10 AM PROGRESS DEVELOPER Office Visit [address] [place] [address] Sarbjit Brothers MD Colon stricture (HCC) (Primary Dx) 09/16/2024 9:09 AM PROGRESS DEVELOPER - 09/20/2024 1:50 PM PROGRESS DEVELOPER Hospital Encounter [facility] [address] [place] [address] Sarbjit Brothers MD Colon stricture (HCC) Discharge Disposition: Discharge to home or self care 09/16/2024 10:55 AM PROGRESS DEVELOPER - 09/16/2024 1:50 PM PROGRESS DEVELOPER Surgery [facility] Operating Room [address] [place] [address] Sarbjit Brothers MD XI RIGHT COLECTOMY - LAPAROSCOPIC ROBOTIC ASSISTED 09/16/2024 11:28 AM PROGRESS DEVELOPER Anesthesia Event [facility] Operating Room [address] [place] [address] Huber Gonsalez MD Riddle, Rachel Marie, CRNA 08/11/2024 Orders Only [facility] [address] [place] [address] [address] [place] [address] Sarbjit Brothers MD Colon stricture (HCC) (Primary Dx) 08/07/2024 Orders Only [address] [place] [address] Sarbjit Brothers MD 08/06/2024 Orders Only [address] [place] [address] Sarbjit Brothers MD 08/06/2024 9:20 AM PROGRESS DEVELOPER Office Visit [address] [place] [address] Sarbjit Brothers MD Colon stricture (HCC) (Primary Dx) 07/22/2024 Telephone [facility] Gastroenterology at [address] [place] [address] Demi Andrade LPN 07/22/2024 10:00 AM PROGRESS DEVELOPER - 07/22/2024 11:59 PM PROGRESS DEVELOPER Hospital Encounter [facility] [address] [place] [address] Stricture of transverse colon (HCC); Colitis Discharge Disposition: Discharge to home or self care from Last 3 Months Allergies Active Allergy Reactions Criticality Noted Date [...] reassess. Assessment & Plan (10/08/2024 9:38 AM PROGRESS DEVELOPER): We have discussed protein supplementation in liquid [...] change. Assessment & Plan (09/24/2024 2:26 PM PROGRESS DEVELOPER): Continue diet as tolerated. Bowel regimen if needed to avoid straining. Reena have been removed and Steri-Strips placed. We have gone over pathology results with the patient. Continue to avoid heavy lifting. We will see the patient back in 2 weeks. Assessment & Plan (08/06/2024 9:43 AM PROGRESS DEVELOPER): Given the progression of the stricture we [...] She would like brand-only Synthroid. Presbyopia 06/09/2012 Immunizations Immunization Administration Dates Next Due Tdap 03/25/2018 Social History Tobacco Use Types Packs/Day Years Used Date Smoking Tobacco: Never Smokeless Tobacco: Never Tobacco Cessation:Counseling Given: Not Answered [facility] Utilities Answer Date Recorded In the past 12 months has [employer], gas, oil, or water company threatened to [...] often do you attend chur ch or tenriism services? Patient declined 09/17/2024 Do you belong to any clubs o r organizations such as jew groups, unions, fraternal or athletic groups, or [...] any time in the past 12 m [facility], were you homeless or living in a chcf (including now)? No 09/17/2024 Personal Safety Answer Date Recorded Have you ever been in or are you currently in a harmful physical or emotional relationship or is someone making you feel afraid or unsafe? Denies 09/16/2024 Comments Unknown Sex and Gender Information Value Date Recorded Sex Assigned at Not on file Legal Sex Female 4:22 AM PROGRESS DEVELOPER Gender Identity Not on file Sexual Orientation Not on file Last Filed Vital Signs Vital Sign Reading Time Taken Comments Blood Pressure 132/85 10/15/2024 9:41 AM CDT Pulse 122 10/15/2024 9:41 AM CDT Temperature 36.3 C (97.3 F) 10/15/2024 9:41 AM CDT Respiratory Rate 18 09/20/2024 7:00 AM PROGRESS DEVELOPER Oxygen Saturation 95% 10/15/2024 9:41 AM CDT Inhaled Oxygen Concentration - - Weight 87.8 kg (193 lb 8 oz) 10/15/2024 9:41 AM CDT Height 162.6 cm (5' 4 ) 10/15/2024 9:41 AM CDT Body Mass Index 33.21 10/15/2024 9:41 AM CDT Plan of Treatment Not on file Procedures Procedure Name Priority Date/Time Associated Diagnosis Comments EGFR Routine 09/17/2024 2:51 AM PROGRESS DEVELOPER CBC WITHOUT DIFFERENTIAL Routine 09/17/2024 2:51 AM PROGRESS DEVELOPER PHOSPHORUS Routine 09/17/2024 2:51 AM PROGRESS DEVELOPER MAGNESIUM Routine 09/17/2024 2:51 AM PROGRESS DEVELOPER BASIC METABOLIC PANEL Routine 09/17/2024 2:51 AM PROGRESS DEVELOPER NM AN ELECTIVE ENDOTRACHEAL AIRWAY Routine 09/16/2024 12:01 PM PROGRESS DEVELOPER XI RIGHT COLECTOMY - LAPAROSCOPIC ROBOTIC ASSISTED 09/16/2024 10:58 AM PROGRESS DEVELOPER Colon stricture (HCC) SURGICAL PATHOLOGY Routine 09/16/2024 9: 41 AM PROGRESS DEVELOPER Colon stricture (HCC) B ABO / RH CONFIRMATION TESTING STAT 09/16/2024 9:32 AM PROGRESS DEVELOPER EGFR STAT 09/16/2024 9:29 AM PROGRESS DEVELOPER DIFFERENTIAL AUTO STAT 09/16/2024 9:2 9 AM PROGRESS DEVELOPER ANTIBODY SCREEN STAT 09/16/2024 9:29 AM PROGRESS DEVELOPER ABO/RH STAT 09/16/2024 9:29 AM PROGRESS DEVELOPER TYPE AND SCREEN STAT 09/16/2024 9:29 AM PROGRESS DEVELOPER CBC WITH AUTO DIFFERENTIAL STAT 09/16/2024 9:29 AM PROGRESS DEVELOPER BASIC METABOLIC PANEL STAT 09/16/2024 9:[address] ENTEROGRAPHY W CONTRAST Schedule NEO, Read Routine (Patient lives out of area) 07/22/2024 12:09 PM PROGRESS DEVELOPER Stricture of transverse colon (HCC) Colitis COLONOSCOPY 07/17/2024 8:41 AM PROGRESS DEVELOPER from Last 3 Months or Most Recently Relevant to Health Maintenance Results * eGFR (09/17/2024 2:51 AM PROGRESS DEVELOPER) eGFR 82 >=60 mL/min/1. 73 m2 Comment: [...] last reviewed 2021. Blood 09/17/2024 2:51 AM PROGRESS DEVELOPER 09/17/2024 3:40 AM PROGRESS DEVELOPER Sarbjit Brothers MD LAB BLOOD ORDERA BLES Final Result [facility] ([place]) 1 [facility] Department [place] [address] * (ABNORMAL) CBC without differential (09/17/2024 2:51 AM PROGRESS DEVELOPER) [facility] WBC 14.9(H) 3.8 - 9.9 K/cumm Hgb [...] [facility] ([place]) Blood 09/17/2024 2:51 AM PROGRESS DEVELOPER 09/17/2024 3:39 AM PROGRESS DEVELOPER Sarbjit Brothers MD LAB BLOOD ORDERA BLES Final Result Performing Organization Address City/[facility]/ZIP Co de Phone Number [facility] ([place]) 1 [facility] [place] [address] * Phosphorus (09/17/2024 2:51 AM PROGRESS DEVELOPER) [facility] Phosphorus, pl 3.5 2.3 - 4.5 mg/dL Blood 09/17/2024 2:51 AM PROGRESS DEVELOPER 09/17/2024 3:40 AM PROGRESS DEVELOPER Sarbjit Brothers MD LAB BLOOD ORDERA BLES Final Result Performing Organization Address [facility]/ZIP Co de Phone Number [facility] ([place]) 1 [facility] [place] [address] * Magnesium (09/17/2024 2:51 AM PROGRESS DEVELOPER) [facility] Magnesium 1.8 1.4 - 2.5 mg/dL Blood 09/17/2024 2:51 AM PROGRESS DEVELOPER 09/17/2024 3:40 AM PROGRESS DEVELOPER Sarbjit Brothers MD LAB BLOOD ORDERA BLES Final Result Performing Organization Address [facility] de Phone Number [facility] ([place]) 1 [facility] [place] [address] * (ABNORMAL) Basic metabolic panel (09/17/2024 2:51 AM PROGRESS DEVELOPER) [facility] Sodium 137 135 - 145 mmol/L Potassium, pl 4.4 3.3 - 4.9 mmol/L [facility] ([place]) Chloride 105 97 - 110 mmol/L [facility] ([place]) CO2 21(L) 22 - 32 mmol/L [facility] ([place]) Anion gap 11 2 - 15 mmol/L [facility] ([place]) BUN 10 6 - 25 mg/dL [facility] Creatinine 0.84 0.60 - 1.10 [...] 2022. Calcium 8.9 8.5 - 10.3 mg/dL [facility] ([place]) Blood 09/17/2024 2:51 AM PROGRESS DEVELOPER 09/17/2024 3:40 AM PROGRESS DEVELOPER us Sarbjit Brothers MD LAB BLOOD ORDERA BLES Final Result [facility] ([place]) 1 [facility] Department [place] [address] * NM AN ELECTIVE ENDOTRACHEAL AIRWAY (09/16/2024 12:01 PM PROGRESS DEVELOPER) Narrative Shannan Ballesteros CRNA - 09/16/2024 12:01 PM PROGRESS DEVELOPER Shannan Ballesteros CRNA 09/16/2024 12:05 PM Airway Patient location: OR Urgency: elective Indications for airway management: anesthesia and airway protection Difficult airway: no Staff: Placed by: CORWIN: Shannan Ballesteros CRNA Emergent airway documentation: Risks [...] Result * Surgical pathology (09/16/2024 9:41 AM PROGRESS DEVELOPER) Tissue (Colon, Resection, Non-tumor) 09/16/2024 4:25 PM PROGRESS DEVELOPER Narrative PATHOLOGY [facility] ([place]) - 09/21/2024 11:00 AM PROGRESS DEVELOPER EPIC results best viewed via link to PDF [facility] Department of Pathology [address] [place] [id number] Note to Patients: This report may contain [...] Final Report Patient Name: ALETHEA HERNANDEZ Address: [address] [place] [id number] Gender: F : 1965 (Age: 58) Service: Surgery Location: [facility] Hospital #: [id number] Patient Type: [facility] Taken: 09/16/2024 Received: 09/17/2024 Accessioned: 09/17/2024 Reported: [...] in a single formalin filled container labeled ALETHEA HERNANDEZ and right colon, transverse colon . [...] pinpoint lumen. Sections A1-proximal and distal margins; Q2-R6-xnlqpjilpmqvvj cecum; A4 logistics service representative appendix; A8-H9-uzfzrwr area of stricture adjacent to endoscopy clips; [...] determined by the Surgical Pathology Department at [facility] as part of an ongoing director software quality assurance program and in compliance with federally mandated [...] characteristics determined by the Surgical Pathology Department [facility]. It has not been cleared or approved by the U. S. Food and Drug Administration. Note for decalcified specimens: This assay has not been validated on decalcified tissues. Results should be interpreted with caution given the possibility of false negativity on decalcified specimens Sarbjit Brothers MD LAB PATHOLOGY OR DERABLES Final Result [facility] ([place]) [address] [place] [address] * ABO / Rh Confirmation Testing (09/16/2024 9:32 AM PROGRESS DEVELOPER) ABO/Rh Confirmation A Positive [facility] Blood 09/16/2024 9:32 AM PROGRESS DEVELOPER 09/16/2024 10:50 AM PROGRESS DEVELOPER Sarbjit Brothers MD LAB BLOOD ORDERA BLES Final Result [facility] ([place]) 1 [facility] Department [place] [address] [facility] * eGFR (09/16/2024 9:29 AM PROGRESS DEVELOPER) eGFR 69 >=60 mL/min/1. 73 m2 Comment: [...] last reviewed 2021. Blood 09/16/2024 9:29 AM PROGRESS DEVELOPER 09/16/2024 9:40 AM PROGRESS DEVELOPER Sarbjit Brothers MD LAB BLOOD ORDERA BLES Final Result [facility] ([place]) 1 [facility] Department [place] [address] * Differential, auto (09/16/2024 9:29 AM PROGRESS DEVELOPER) Neutrophil abs 3.5 1.5 - 6.5 K/cumm [...] revised on 2017. Blood 09/16/2024 9:29 AM PROGRESS DEVELOPER 09/16/2024 9:40 AM PROGRESS DEVELOPER us Sarbjit Brothers MD LAB BLOOD ORDERA BLES Final Result [facility] ([place]) 1 [facility] Department [place] [address] * (ABNORMAL) CBC with auto differential (09/16/2024 9:29 AM PROGRESS DEVELOPER) WBC 5.9 3.8 - 9.9 K/cumm Hgb [...] ([place]) MCH 27.5 27.1 - 33.3 pg [facility] ([place]) MCHC 32.2(L) 32.3 - 35.7 g/dL [facility] ([place]) RDW CV 14.2 11.1 - 14.9 % [facility] ([place]) RDW SD 43.8 35.7 - 48.1 fL [facility] ([place]) NRBC abs 0.00 0.00 - 0.01 K/cumm [facility] ([place]) Blood 09/16/2024 9:29 AM PROGRESS DEVELOPER 09/16/2024 9:40 AM PROGRESS DEVELOPER Sarbjit Brothers MD LAB BLOOD ORDERA BLES Final Result Performing Organization Address City/[facility]/ZIP Co de Phone Number [facility] ([place]) 1 [facility] [place] [address] * ABO/Rh (09/16/2024 9:29 AM PROGRESS DEVELOPER) ABO/Rh A Positive Blood 09/16/2024 9:29 AM PROGRESS DEVELOPER 09/16/2024 9:40 AM PROGRESS DEVELOPER Narrative [facility] ([place]) - 09/16/2024 10:39 AM PROGRESS DEVELOPER Has the patient had Daratumumab or Isatuximab in the past 6 months?->Unknown Sarbjit Brothers MD LAB BLOOD BANK T EST ORDERABLES Final Result [facility] ([place]) 1 [facility] Department [place] [address] * Antibody screen (09/16/2024 9:29 AM PROGRESS DEVELOPER) Violeta, indirect, Gel Interpretation Negative ABSC Blood 09/16/2024 9:29 AM PROGRESS DEVELOPER 09/16/2024 9:40 AM PROGRESS DEVELOPER Narrative [facility] ([place]) - 09/16/2024 10:39 AM PROGRESS DEVELOPER Has the patient had Daratumumab or Isatuximab in the past 6 months?->Unknown us Sarbjit Brothers MD LAB BLOOD BANK T EST ORDERABLES Final Result [facility] ([place]) 1 [facility] Department [place] [address] * (ABNORMAL) Basic metabolic panel (09/16/2024 9:29 AM PROGRESS DEVELOPER) Pathologist [facility] Sodium 139 135 - 145 mmol/L Potassium, pl 4.1 3.3 - 4.9 mmol/L [facility] ([place]) Chloride 108 97 - 110 mmol/L [facility] ([place]) CO2 19(L) 22 - 32 mmol/L [facility] ([place]) Anion gap 12 2 - 15 mmol/L [facility] ([place]) BUN 8 6 - 25 mg/dL [facility] ([place]) Creatinine 0.96 0.60 - 1.10 mg/dL [facility] ([place]) Glucose 91 70 - 199 mg/dL [facility] ([place]) Comment: Interpretive Data Fasting glucose >/= [...] [facility] ([place]) Blood 09/16/2024 9:29 AM PROGRESS DEVELOPER 09/16/2024 9:40 AM PROGRESS DEVELOPER us Sarbjit Brothers MD LAB BLOOD ORDERA BLES Final Result [facility] ([place]) 1 [facility] Department [place] [address] * CT Abdomen and Pelvis Enterography W Contrast (07/22/2024 12:09 PM PROGRESS DEVELOPER) Anatomical Region Laterality Modality Abdomen N/A Computed Tomogra phy 07/23/2024 6:10 AM PROGRESS DEVELOPER Narrative 07/23/2024 6:27 AM PROGRESS DEVELOPER EXAM DESCRIPTION: CT ENTEROGRAPHY W CONTRAST REASON [...] Anthony Howell M.D. RB: YASSINE Report ID: [id number] Reading Location: [place] [address] Procedure Note Anthony Howell MD - 07/23/2024 [...] Anthony Howell M.D. RB: YASSINE Report ID: [id number] Reading Location: [id number] us Jose L Bosch MD IMG CT PROCEDURES Final Re sult * Colonoscopy (07/17/2024 8:41 AM PROGRESS DEVELOPER) Anatomical Region Laterality Modality Other Narrative Procedure Note Jose L Bosch MD - 07/17/2024 8:[address] [facility] Patient Name: Alethea Hernandez Procedure Date: 07/17/2024 8:41 AM Date of : 1965 Admit Type: Outpatient Age: 58 Gender: Female Attending MD: Jose L Bosch M.D. Room: [facility] ENDOSCOPY ROOM 1 Note Status: Finalized Patient Profile: This is a 58 year old female. Previous colonoscopyin 2018 noted with stricture of the transverse colon.CT [...] passed under direct vision. The Pediatric Colonoscope [id number] was introduced through the anus and advanced [...] hemostatic clips weresuccessfully placed (MR conditional). Clip solid die cutter: [employer]. Therewas no bleeding at the end of [...] 8:41 AM Procedure Code(s): --- Professional --- 36183, 52, Colonoscopy, flexible; with biopsy, single or multiple 77191, Unlisted procedure, colon Diagnosis Code(s): --- Professional --- K56.699, Other intestinal obstruction unspecified as to partialversus complete obstruction K52.9, Noninfective gastroenteritis and colitis, unspecified K64.8, Other hemorrhoids R10.31, Right lower quadrant pain R19.4, Change in bowel habit K59.00, Constipation, unspecified R19.7, Diarrhea, unspecified CPT copyright 2020 [employer] [place] [employer]. All rights reserved. The codes documented in this report are preliminary and upon messenger office reviewmay be revised to meet current compliance requirements. Recognized by the [place] [employer] Gastrointestinal [employer] for promoting quality in endoscopy Jose L Bosch MD ENDOSCOPY PROCEDURES Final Result from Last 3 Months or Most Recently Relevant to Health Maintenance Insurance [facility] CHOICE PLUS [facility] CONSOCIATE [employer] CONSOCIATE * Guarantor: [employer] Account Type Relation to Patient Date of Phone Billing Address Workers Comp Employer [employer] [address] [place] [address] Advance Directives For more information, please contact: [phone] * Full Code (Latest Code Status on File) Date Activated Date Inactivated Comments 09/16/2024 6:57 PM 09/20/2024 6:57 PM * Full Code Date Activated Date Inactivated Comments 05/19/2018 7:16 AM 05/19/2018 11:39 AM Care Teams Hr Administrator Relationship Specialty Start Date End Date Cristiana Schmidt MD [address] [place] [address] DR SMITH B [address] [address] PCP - General Family Practice 04/19/23
--- OUTSIDE RECORDS SUMMARY | 2024-10-20 18:35 | XMS_ITS | Clinical Summary ---
Author Organization [facility] [place] Address [address] [facility] [place] [address] Care Team Providers Care Heel Seat Trimmer Name Role Phone Unavailable Primary Care Provider Unavailabl e Allergies Active Allergy Reactions Criticality Noted Date Comments Codeine Dizziness 09/10/2018 Medications buPROPion HCl (WELLBUTRIN XL) 150 mg Extended Release 24 hour tablet Take 300 mg by mouth daily golf club manager . Active venlafaxine 225 mg Extended Release 24 hour tablet Take 225 mg by mouth daily with breakfast. Active Active Problems No known active problems Social History Tobacco Use Types Packs/Day Years Used Date Smoking Tobacco: Never Assessed Comments Unknown Sex and Gender Information Value Date Recorded Sex Assigned at Not on file Legal Sex Female 10:33 AM CDT Gender Identity Not on file Sexual Orientation Not on file Last Filed Vital Signs Vital Sign Reading Time Taken Comments Blood Pressure 110/75 09/10/2018 2:19 PM EQUINE PHARMACOLOGY TECHNICIAN Pulse 97 09/10/2018 2:19 PM EQUINE PHARMACOLOGY TECHNICIAN Temperature 37.6 C (99.7 F) 09/10/2018 2:19 PM EQUINE PHARMACOLOGY TECHNICIAN Respiratory Rate 20 09/10/2018 2:19 PM EQUINE PHARMACOLOGY TECHNICIAN Oxygen Saturation 98% 09/10/2018 2:19 PM EQUINE PHARMACOLOGY TECHNICIAN Inhaled Oxygen Concentration - - Weight - - Height - - Body Mass Index - - Plan of Treatment Health Maintenance Due Date Last Done Comments HEPATITIS B VACCINES (1 of 3 - 19+ 3-dose series) 09/06 CERVICAL CANCER SCREENING 1997 BREAST CANCER SCREENING 2007 COLORECTAL SCREENING 2012 Colorectal Cancer Screening 2012 FIT-DNA Q 3 years 2012 FIT/FOBT Q 1 year 2012 Flex Sig/CT Colonography Q 5 years 2012 ZOSTER VACCINE (1 of 2) 2017 INFLUENZA VACCINE (#1) 2024 DTAP/TDAP/TD VACCINES (2 - Td or Tdap) 03/25/2028
[2024-10-20 18:36] VITALS: BP 124/71; PULSE 70; RESP 20; TEMP 36.9; O2SAT 97
--- NOTE | 2024-10-20 18:51 | ED.URI ---
HPI - URI/Sore Throat General Chief Complaint: Upper Respiratory Infection Stated Complaint: chills/headache/dizzy/sinus/ears Source: patient Mode of arrival: ambulatory Limitations: no limitations History of Present Illness HPI Narrative: 59-year-old female presented for complaint of malaise, nasal drainage and occasional dizziness. Also reports feeling weak when she gets up and feels like her legs are going to give out. Endorses decreased appetite (approx 300 calories intake today), nausea, and subjective fever/chills. Symptoms worsening for 1 week. Patient endorses 5 weeks ago she had a colectomy, and is scheduled in 2 days for follow-up. Endorses 'normal' surgery related abdominal pain. Taking Zofran and Colace. Not taking anything for nasal congestion. Denies chest pain, palpitations, sob, wheezing, vomiting, or diarrhea. Related Data Home Medications ?Medication ?Instructions ?Recorded ?Confirmed ?Last Taken ?Type bupropion HCl 300 mg 24 hr tablet, mg PO 10/20/24 Unknown History extended release docusate sodium .ROUTE 10/20/24 Unknown History ondansetron .ROUTE 10/20/24 Unknown History venlafaxine 75 mg capsule,extended mg PO 10/20/24 Unknown History release 24 hr Allergies Allergy/AdvReac Type Severity Reaction Status Date / Time codeine Allergy Unknown Unknown Verified 10/20/24 18:40 erythromycin base Allergy Unknown Unknown Verified 10/20/24 18:40 Review of Systems Review of Systems: ROS per HPI All systems reviewed & are unremarkable except as noted in HPI and below [facility] History Surgical History (Updated 10/21/24 @ 08:20 by Danelle Zuniga, GURMEET) H/O colectomy Comments At time of signature, I have reviewed and agree with nursing past medical, surgical, social and family history unless otherwise noted. Please see nursing chart for further information. There is no relevant family history pertinent to the presenting complaint Exam Narrative: GENERAL: mildly ill appearing, in no acute distress. EYES: EOMI. No redness or drainage. Conjunctivae normal. ENT: Mucous membranes pink and dry. No rhinorrhea. TMs normal bilaterally. Throat normal. Uvula midline. CHEST: No respiratory distress. Clear to auscultation. HEART: Regular rate and rhythm. No murmur appreciated. Normal peripheral pulses. ABDOMEN: Soft, generalized tender, nondistended, normal active bowel sounds. Abdominal incisions appear healing well, no erythema/induration, open wounds or drainage. EXTREMITIES: Normal range of motion. No edema. SKIN: Warm, dry, no rash. Capillary refill normal. Normal skin turgor. NEURO: No focal deficits. Alert and oriented x3. Gait steady. PSYCH: Normal affect. Course Course Emergency Course: Patient is aware of diagnosis, understands and agrees to treatment plan. Anticipatory guidance given. Patient agrees to follow-up as directed and is aware of reasons to seek care at the emergency department. Portions of this record may have been created with voice recognition software Level of Care: Express Care Visit Vital Signs Vital signs: Vital Signs Temperature 98.5 F 10/20/24 18:36 Pulse Rate 70 10/20/24 18:36 Respiratory Rate 20 10/20/24 18:36 Blood Pressure 124/71 10/20/24 18:36 Pulse Oximetry 97 10/20/24 18:36 Oxygen Delivery Room Air 10/20/24 18:36 Temperature 98.5 F 10/20/24 18:36 Pulse Rate 70 10/20/24 18:36 Respiratory Rate 20 10/20/24 18:36 Blood Pressure 124/71 10/20/24 18:36 Pulse Oximetry 97 10/20/24 18:36 Oxygen Delivery Room Air 10/20/24 18:36 MDM - URI/Sore Throat MDM Narrative Medical decision making narrative: flu and covid negative patient presents with reports of low caloric intake, dizzy, malaise, weak. Discussed physical exam findings most c/w dehydration. Advised ER transfer. Pt declines. She states she will contact the surgeon in the morning and request labs. The patient is AA&Ox3, free from distracting injury, accompanied by . The patient has demonstrated concrete thinking/reasoning, has maintained an history department chair/reasonable conversation, appears to have intact insight/judgment/reason and therefore has capacity to make decisions. Given the patients presentation, we communicated our concern for fatigue/weakness, dehydration in laymans terms. The patient verbalized an understanding. The patient is aware the evaluation is incomplete & many troublesome conditions have not been r/o. We have discussed the need for further ED workup. We have discussed the range of possible dx, potential testing & treatment options. Weve made efforts to prevent the pt from leaving AMA. Our discussions included the potential outcomes of leaving AMA, including worsening of their condition, becoming permanently disabled/in pain/critically ill, or . Despite these efforts, we were unable to convince the pt to go to the ER. We have attempted to offer tx/rx/guidance for any dangerous conditions which are most likely and/or dangerous. We have answered all questions and have implored the patient to go to ER [facility] to complete the w/u. A staff member witnessed the patient consenting to AMA. Differential Diagnosis Differential diagnosis: Likely other (dehydration, anemia, sepsis, viral infection, PE, CHF, PR, hypoglycemia) Lab Data Labs: Lab Results 10/20/24 10/20/24 Range/Units 19:07 19:08 POC Influenza A Ag Negative (Negative) POC Influenza B Ag Negative (Negative) POC SARS CoV-2 Ag Negative (Negative) Discharge Plan Discharge Clinical Impression: Fatigue Qualifiers: Fatigue type: unspecified Qualified Code(s): R53.83 - Other fatigue Patient Disposition: Left Against Medical Advice Condition: Stable Instructions: Dehydration (ED) Additional Instructions: Flu and COVID negative. You were advised to transfer to the ER and you decline at this time. You were made aware of the risk of refusal including worsening of your condition, disability, and . Report to the ER immediately by calling 911 for any worsening symptoms. Stay hydrated. Take small sips of fluid containing electrolytes frequently. Clear liquids (broth, jello, tea, sprite, pedialyte) Tensas foods (bananas, rice, applesauce, toast, crackers) Avoid fatty, greasy, fried or spicy foods. Limit dairy until symptoms are improved. You should go to the hospital if you experience persistent nausea and vomiting that does not resolve and does not allow you to tolerate any food or fluids, fevers, increasing abdominal pain, persistent diarrhea, dizziness, fainting, or for any other concerns. Follow up with primary care provider and surgeon. Call in the morning to schedule an appointment. Patient Language: Japanese Prescriptions: No Action venlafaxine 75 mg capsule,extended release 24hr PO bupropion HCl 300 mg tablet extended release 24 hr PO docusate sodium [Colace] .ROUTE ondansetron [Zofran ODT] .ROUTE Follow-up/Referrals: PHYSICIAN NOT ON STAFF,NONSTAFF [Primary Care Provider] -
[2024-10-20 19:10] LABS: EDINFLUASCREEN Negative (Negative); EDINFLUBSCREEN Negative (Negative)
[2024-10-20 19:10] LABS: EDCOVIDSCREEN Negative (Negative)
== END 2024-10-20 19:34 | disposition left against medical advice (07) ==
PROVIDERS: Emergency Provider Nurse Practitioner Family
DX: R53.83 Other fatigue (principal); Z20.822 Contact with and (suspected) exposure to COVID-19
CPT/HCPCS: 87426; 87804; 99212; G0463